=== PATIENT | female | born 1950 | race African-American/Black ===

== ENCOUNTER 2019-07-10 19:42 | Emergency (ER) | payer OTHER, MEDICAID ==
[~2019-07-10] VITALS: Ht 167.6 cm; Wt 63.0 kg
[2019-07-10 20:54] LABS: Urine Bacteria NONE SEEN /hpf (None Seen); Urine Blood Negative /uL (Negative); Urine WBC 4 /hpf (0 - 5)
[2019-07-10 21:13] LABS: Basophils # (auto) 0 uL; Basophils % (auto) 0.4 % (0.0-2.0); Eosinophils # (auto) 0 uL; Eosinophils % (auto) 0.4 % (0.0-7.0); Hematocrit 44.1 % (36.0-46.0); Hemoglobin 15.1 g/dL (12.2-16.2); Lymphocytes # (auto) 1.4 uL; Lymphocytes % (auto) 12.6 % (10.0-50.0); Mean Corpuscular Hgb Conc. 34.3 g/dL (32.0-36.0); Mean Corpuscular Volume 90.5 fL (80.0-100.0); Monocytes # (auto) 0.4 uL; Monocytes % (auto) 4.1 % (0.0-12.0); Neutrophils # (auto) 9.1 uL; Neutrophils % (auto) 82.5 % (37.0-80.0); Platelet Count (auto) 177 10^3/uL (140-450); Red Blood Cells 4.88 10^6/uL (4.0-5.20); Red Cell Distribution Width 13.4 % (11.8-14.3)
[2019-07-10 21:28] LABS: BUN/Creatinine Ratio 23.7; Calcium 9.7 mg/dL (8.5-10.1); Potassium 3.7 mmol/L (3.5-5.1)
[2019-07-10 21:35] LABS: Bilirubin, Total 0.2 mg/dL (0.2-1.0); Total Protein 7.8 g/dL (6.4-8.2)
[2019-07-10 22:29] VITALS: BP 148/49
== END 2019-07-10 22:35 | disposition home or self-care (01) ==
LOC: ER 19:56
DX: N20.0 Calculus of kidney (principal); N39.0 Urinary tract infection, site not specified; F17.210 Nicotine dependence, cigarettes, uncomplicated; I10 Essential (primary) hypertension
CPT/HCPCS: 36415; 74176; 80053; 81001; 83690; 85025; 93005

== ENCOUNTER 2024-02-12 14:23 | Emergency (ER) | payer OTHER, MEDICAID ==
[~2024-02-12] VITALS: Ht 167.6 cm; Wt 70.0 kg
[2024-02-12 16:50] VITALS: BP 179/94; PULSE 77; RESP 18; TEMP 98.5; O2SAT 96
[2024-02-12] MEDS ORDERED: METH-1181 PO (17:02)
[2024-02-12] MEDS: HYDROcodone-ACET 5/325MG TAB PO ONE (17:03)
== END 2024-02-12 17:25 | disposition home or self-care (01) ==
LOC: ER 14:23
DX: S22.088A Other fracture of T11-T12 vertebra, initial encounter for closed fracture (principal); M51.36 Other intervertebral disc degeneration, lumbar region; R51.9 Headache, unspecified; I10 Essential (primary) hypertension; F17.210 Nicotine dependence, cigarettes, uncomplicated; W17.89XA Other fall from one level to another, initial encounter; Y93.89 Activity, other specified; Y92.89 Other specified places as the place of occurrence of the external cause; Y99.8 Other external cause status
CPT/HCPCS: 70450; 72131